=== PATIENT | male | born 1965 | race Caucasian/White ===

== ENCOUNTER 2018-06-03 03:13 | Observation (INO) ==
--- NOTE | 2018-06-03 03:24 | Emergency Department Note ---
Disposition Clinical Impression: Cellulitis of right hand Pulmonary edema Qualifiers: Chronicity: acute Qualified Code(s): J81.0 - Acute pulmonary edema Disposition: Admitted As Inpatient Condition: Fair Fall HPI - General Chief Complaint: ED Fall Stated Complaint: fall Source: patient, EMS, other ([facility] report) Mode of arrival: EMS Limitations: altered mental status (dementia) Nursing Notes Reviewed: Yes Vital Signs Reviewed: Yes - History of Present Illness HPI Narrative: Patient presents to the ED via EMS with report of unwitnessed fall at his [facility] and being found to have low oxygen saturations. Per [facility] report patient was found on the floor in his room after an apparent fall that was not witnessed. His oxygen saturations were reportedly in the 50s to 60s at that time and he was placed on oxygen. He was reported to have a change in mental status as well. Per EMS patient is alert and does follow commands. He does have a history of dementia and psychosis. EMS placed him on 4 L of oxygen with improvement saturations into the mid 90s. Apparently he normally is supposed to wear 2 L of oxygen at all times at the [facility] but is not always compliant. On arrival here patient is awake and alert. He will follow commands and answers some questions appropriately. He initially denied any pain or complaints but then did indicate he had some pain in his left lower leg and right hand and wrist during exam. Records shows that he does take xeralto and baby aspirin. - Related Data Home Medications Medication Instructions Recorded Confirmed ARIPiprazole [Abilify] 5 mg PO DAILY 05/17/18 06/03/18 Acetaminophen [Tylenol] 650 mg PO Q6HR 05/17/18 05/17/18 Aspirin [Lo-Dose Aspirin EC] 81 mg PO DAILY 05/17/18 06/03/18 Atorvastatin [Lipitor] 40 mg PO HS 05/17/18 06/03/18 Carvedilol [Coreg] 6.25 mg PO BIDWM 05/17/18 06/03/18 Famotidine [Pepcid] 40 mg PO DAILY 05/17/18 06/03/18 HYDROcodone/Acet 7.5/325 mg [[place] 1 tab PO Q4H PRN 05/17/18 06/03/18 7.5-325 mg] Insulin Glargine [Lantus] 35 unit SQ HS 05/17/18 06/03/18 Insulin LISPRO [Humalog] 0 unit SQ TIDWM 05/17/18 06/03/18 Ipratropium/Albuterol Neb [Duoneb] 3 ml IH Q6HR 05/17/18 06/03/18 LORazepam [Ativan] 1 mg PO TID 05/17/18 06/03/18 Levothyroxine [Synthroid] 50 mcg PO 0630 05/17/18 06/03/18 Lisinopril [Zestril] 5 mg PO DAILY 05/17/18 06/03/18 Melatonin 10 mg PO HS 05/17/18 06/03/18 OLANZapine [Zyprexa] 2.5 mg PO BID 05/17/18 06/03/18 Ondansetron ODT [Zofran ODT] 4 mg SL Q6HR PRN 05/17/18 06/03/18 Quetiapine Fumarate [Seroquel] 200 mg PO TID 05/17/18 06/03/18 Rivaroxaban [Xarelto] 20 mg PO DAILY 05/17/18 06/03/18 Sertraline [Zoloft] 75 mg PO DAILY 05/17/18 06/03/18 Tamsulosin HCl [Flomax] 0.4 mg PO DAILY 05/17/18 06/03/18 metFORMIN [Glucophage] 1,000 mg PO BIDWM 05/17/18 06/03/18 Cyanocobalamin (Vitamin B-12) 1,000 mcg PO DAILY 06/03/18 06/03/18 [Vitamin B-12] Divalproex (12 HR) [Depakote (12 500 mg PO BID 06/03/18 06/03/18 HR)] HydrOXYzine Pamoate [Vistaril] 25 mg PO BID 06/03/18 06/03/18 Multivit-Min/Iron Fum/Folic AC 1 each PO DAILY 06/03/18 06/03/18 [Dkafn-Ntwowtk-Biquykck Tablet] Allergies Allergy/AdvReac Type Severity Reaction Status Date / Time bupropion [From Wellbutrin] Allergy Hives Verified 06/03/18 03:42 Constitutional: Denies: fever, chills, weakness, weight change Eyes: Denies: eye pain, eye discharge, vision change ENT ED: Denies: ear pain, throat pain, dental pain, hearing loss, epistaxis, congestion, dysphagia Cardiovascular: Denies: chest pain, palpitations, dyspnea on exertion, edema, syncope Respiratory: Denies: cough, dyspnea, wheezes, hemoptysis, stridor Gastrointestinal: Denies: abdominal pain, nausea, vomiting, diarrhea, consti pation, hematemesis, melena, hematochezia Genitourinary: Denies: urgency, dysuria, frequency, hematuria Musculoskeletal: Reports: as per HPI, arthralgia (R hand/wrist, left lower leg). Denies: back pain, neck pain, myalgia Integumentary: Denies: rash, abrasion, lesions Neurological: Denies: headache, weakness, numbness, paresthesias, confusion, abnormal gait, vertigo Psychiatric: Denies: anxiety, depression, suicidal thoughts, homicidal thoughts, auditory hallucinations, visual hallucinations Endocrine: Denies: fatigue Hematological/Lymphatic: Denies: easy bleeding, easy bruising Allergic/Immunologic: Denies: facial swelling, urticaria Fall PMH - Past Medical History Medical history: Reports: diabetes, hypertension Psychiatric history: Reports: other (psychosis) - Social History Smoking Status: Current every day smoker Alcohol use: Reports: none Drug use: Reports: none Physical Exam - General Limitations: no limitations General appearance: in no apparent distress, obese - Head Head exam: atraumatic, normocephalic, normal inspection - Eye Eye exam: Present: normal appearance, PERRL, EOMI - ENT ENT exam: normal exam, normal oropharynx, mucous membranes dry - Neck Neck exam: Present: normal inspection, full ROM, trachea midline - Chest Chest inspection: Present: normal inspection, symmetric chest wall rise - Respiratory Respiratory exam: Present: normal lung sounds bilaterally - Cardiovascular Cardiovascular exam: Present: regular rate, normal rhythm, normal heart sounds - Abdominal Exam Abdominal exam: Present: soft, Non-Tender. Absent: tenderness, distention, guarding, rebound, rigidity - Expanded Upper Extremity Exam Shoulder exam: Present: normal inspection, full ROM Arm exam: Present: normal inspection, full ROM Elbow exam: Present: normal inspection, full ROM Forearm/Wrist exam: Present: tenderness, swelling (right wrist), erythema (and warmth on right). Absent: ecchymosis Hand exam: Present: tenderness, swelling, erythema (and warmth on right) Vascular exam: Normal: capillary refill, radial pulse - Expanded Lower Extremity Exam Hip/Pelvis exam: Present: normal inspection, full ROM Upper leg exam: Present: normal inspection, full ROM, other (proximal AKA on right) Knee exam: Present: normal inspection, full ROM Lower leg exam: Present: erythema (and warmth R lower leg and foot, weeping chronic ulcerations) Ankle exam: Present: erythema (and warmth on right) Foot/toe exam: Present: normal inspection, full ROM - Back Exam Back exam: Present: normal inspection, full ROM. Absent: tenderness - Neurological Exam Neurological exam: Present: alert - Psychiatric Psychiatric exam: Present: normal mood, agitated - Skin Skin exam: Present: warm, dry, intact, normal color Course Course Narrative: Patient presents to the ED after an unwitnessed fall at his [facility] with low oxygen saturations. On arrival here oxygen saturations are in the low 90s on 4 L via nasal cannula via his mouth as he is a mouth breather and will not tolerate wearing the nasal cannula intranasally. He is afebrile, nontoxic in appearance and hemodynamically stable other than some mild tachycardia. The right hand and wrist are swollen and red with concerns for cellulitis versus possible traumatic injury from the fall. He also has redness, swelling and warmth to the left lower leg with documentation of her chronic venous ulcer requiring daily dressing changes on his paperwork. This also appears to possibly have associated cellulitis. Will obtain imaging of the hands, wrist and had given the patient is on blood thinners along with the chest x-ray given the low oxygen saturations. Will obtain lab work for further testing of any infectious process. - Reevaluation(s) Reevaluation #1: Laboratory station a mild leukocytosis of 12.5. Lactic acid is normal. Head CT did not show any intracranial injury. X-rays of the right hand and wrist show soft tissue swelling. Chest x-ray however show some pulmonary edema which is consistent with patient's increased dyspnea and trouble tolerating lying flat for his imaging. Oxygen saturations remained in the 90s on 4 L. He has not usually on any diuretics according to records. We will give a dose of Lasix. He has also been given medication for pain and a dose of IV clindamycin for what appears to be some right hand cellulitis. Blood cultures have been drawn. He will require admission for continued diuresis and antibiotic therapy. I spoke to the hospitalist on-call, Dr. Leblanc, who has agreed to admit the patient. Time: 05:22 Vital Signs Temperature 97.4 F L 06/03/18 03:15 Pulse Rate 121 06/03/18 03:15 Respiratory Rate 17 06/03/18 03:15 Blood Pressure 139/63 06/03/18 03:15 O2 Sat by Pulse Oximetry 91 06/03/18 03:15 Temperature 97.4 F L 06/03/18 03:15 Pulse Rate 123 06/03/18 04:48 Respiratory Rate 22 06/03/18 04:48 Blood Pressure 130/71 06/03/18 04:48 O2 Sat by Pulse Oximetry 95 06/03/18 04:48 Oxygen Delivery Oxygen Delivery Nasal Cannula Fall - Differential Diagnosis Likely: traumatic injury - Medical Records Medical records reviewed: Yes I reviewed the patient's medical records. - Lab Data Lab results reviewed: Yes I reviewed the patient's lab results. Result diagrams: 06/03/18 03:55 06/03/18 03:55 Lab Results 06/03/18 06/03/18 06/03/18 Range/Units 03:55 03:55 03:55 WBC 12.5 H (4.3-11.1) K/mcL RBC 4.81 (4.19-5.50) M/mcL Hgb 13.1 (12.9-16.9) g/dL Hct 44.2 (37.5-50.1) % MCV 91.9 (83.0-100.0) fL MCH 27.2 L (28.0-33.3) pg MCHC 29.6 L (31.6-35.5) g/dL RDW 17.6 H (11.5-14.5) % Plt Count 243 (140-400) K/mcL MPV 8.9 L (9.4-12.4) fL Immature Gran % 4.4 H (0-4) % Seg Neutrophils % 68.9 % Lymphocytes % 11.6 % Monocytes % 12.8 % Eosinophils % 1.4 % Basophils % 0.9 % Neutrophils # 8.6 (1.6-8.9) K/mcL Lymphocytes # 1.5 (0.6-4.6) K/mcL Monocytes # 1.6 H (0.0-1.3) K/mcL Eosinophils # 0.2 (0.0-0.6) K/mcL Basophils # 0.1 (0.0-0.2) K/mcL Nucleated RBCs/100 WBC 1.1 H (0) /100 WBC PT 12.7 H (9.4-12.1) Seconds INR 1.1 Sodium 135 L (136-145) mEq/L Potassium 4.5 (3.5-5.1) mEq/L Chloride 92 L (98-107) mEq/L Carbon Dioxide 34 H (23-29) mEq/L BUN 19 (6-20) mg/dL Creatinine 0.48 L (0.70-1.30) mg/dL Est GFR ( Amer) > 60 (> 60) Est GFR (Non-Af Amer) > 60 (> 60) BUN/Creatinine Ratio 40 H (6-26) Glucose 231 H (70-105) mg/dL Calculated Osmolality 290 (280-300) Lactic Acid (0.5-2.2) mmol/L Calcium 9.4 (8.6-10.3) mg/dL 06/03/18 Range/Units 03:55 WBC (4.3-11.1) K/mcL RBC (4.19-5.50) M/mcL Hgb (12.9-16.9) g/dL Hct (37.5-50.1) % MCV (83.0-100.0) fL MCH (28.0-33.3) pg MCHC (31.6-35.5) g/dL RDW (11.5-14.5) % Plt Count (140-400) K/mcL MPV (9.4-12.4) fL Immature Gran % (0-4) % Seg Neutrophils % % Lymphocytes % % Monocytes % % Eosinophils % % Basophils % % Neutrophils # (1.6-8.9) K/mcL Lymphocytes # (0.6-4.6) K/mcL Monocytes # (0.0-1.3) K/mcL Eosinophils # (0.0-0.6) K/mcL Basophils # (0.0-0.2) K/mcL Nucleated RBCs/100 WBC (0) /100 WBC PT (9.4-12.1) Seconds INR Sodium (136-145) mEq/L Potassium (3.5-5.1) mEq/L Chloride (98-107) mEq/L Carbon Dioxide (23-29) mEq/L BUN (6-20) mg/dL Creatinine (0.70-1.30) mg/dL Est GFR ( Amer) (> 60) Est GFR (Non-Af Amer) (> 60) BUN/Creatinine Ratio (6-26) Glucose (70-105) mg/dL Calculated Osmolality (280-300) Lactic Acid 2.2 (0.5-2.2) mmol/L Calcium (8.6-10.3) mg/dL - Radiology Data Radiology results reviewed: Yes I reviewed the patient's radiology results. ITS Impressions Chest X-Ray 06/03/18 03:37 IMPRESSION: Cardiomegaly and pulmonary edema. D/ / Garett Mae MD / Garett Mae MD Interpreting Provider: Garett Mae MD Hand X-Ray 06/03/18 03:37 IMPRESSION: Limited study with no definite fracture. Soft tissue swelling. D/ / Garett Mae MD / Garett Mae MD Interpreting Provider: Garett Mae MD Head CT 06/03/18 03:37 IMPRESSION: Severely limited study demonstrating left frontoparietal encephalomalacia. Consider repeat evaluation once the patient is able to remain still. D/ / Garett Mae MD / Garett Mae MD Interpreting Provider: Garett Mae MD Wrist X-Ray 06/03/18 03:37
[2018-06-03] MEDS ORDERED: *HR* LORazepam 2 MG/ML VIAL IM ONE (03:59)
[2018-06-03 04:06] LABS: Basophils # 0.1 K/mcL (0.0-0.2); Basophils % 0.9 %; Eosinophils # 0.2 K/mcL (0.0-0.6); Eosinophils % 1.4 %; Hematocrit 44.2 % (37.5-50.1); Hemoglobin 13.1 g/dL (12.9-16.9); Immature Granulocytes % 4.4 % (0-4); Lymphocytes % 11.6 %; Mean Corpuscular HGB Conc 29.6 g/dL (31.6-35.5); Mean Corpuscular Hemoglobin 27.2 pg (28.0-33.3); Mean Corpuscular Volume 91.9 fL (83.0-100.0); Mean Platelet Volume 8.9 fL (9.4-12.4); Monocytes # 1.6 K/mcL (0.0-1.3); Monocytes % 12.8 %; Neutrophils # 8.6 K/mcL (1.6-8.9); Nucleated Red Blood Cells 1.1 /100 WBC (0); Platelet Count 243 K/mcL (140-400); Red Blood Count 4.81 M/mcL (4.19-5.50); Red Cell Distribution Width 17.6 % (11.5-14.5); Segmented Neutrophils % 68.9 %
[2018-06-03 04:10] LABS: Lymphocytes # 1.5 K/mcL (0.6-4.6)
[2018-06-03 04:15] LABS: INR 1.1; Prothrombin Time 12.7 Seconds (9.4-12.1)
[2018-06-03 04:28] LABS: BUN/Creatinine Ratio 40 (6-26); Blood Urea Nitrogen 19 mg/dL (6-20); Calcium 9.4 mg/dL (8.6-10.3); Carbon Dioxide 34 mEq/L (23-29); Chloride 92 mEq/L (98-107); Glucose 231 mg/dL (70-105); Osmolality,Calculated 290 (280-300); Potassium 4.5 mEq/L (3.5-5.1); Sodium 135 mEq/L (136-145); eGFR For Non-African Americans > 60 (> 60)
[2018-06-03] MEDS ORDERED: *HR* HYDROcodone/Acet 5/325 mg TABLET PO ONE (04:58)
[2018-06-03] MEDS ORDERED: Clindamycin 600 MG/50 ML 600 MG/50 ML IV.SOLN IVPB STA (04:58)
[2018-06-03] MEDS ORDERED: Furosemide 40 MG/4 ML VIAL IVP ONE (05:16)
[2018-06-03] MEDS ORDERED: Naloxone 0.4 MG/ML INJ IVP PRN ×2 (05:26→07:04)
[2018-06-03] MEDS ORDERED: *HR* Dextrose 50 % in Water (Syg) 50 ML SYRINGE IVP PRN ×2 (05:31→07:04)
[2018-06-03] MEDS ORDERED: D5% in Water 1,000 ML IVC PRN ×2 (05:31→07:04)
[2018-06-03] MEDS ORDERED: Dextrose Gel 15 GM/37.5 ML TUBE PO PRN ×4 (05:31→07:04)
[2018-06-03] MEDS ORDERED: Ipratropium/Albuterol Neb 3 ML IH ONE (05:33)
[2018-06-03] MEDS ORDERED: Ondansetron ODT 4 MG TAB.RAPDIS SL PRN (07:04)
[2018-06-03] MEDS ORDERED: Ipratropium/Albuterol Neb 3 ML IH SCH ×2 (07:04→10:00)
[2018-06-03] MEDS ORDERED: Insulin LISPRO 300 UNITS/3 ML VIAL SQ SCH ×3 (07:30→21:00)
[2018-06-03] MEDS ORDERED: Nicotine 14 MG PATCH.TD24 TD SCH (09:00)
[2018-06-03] MEDS: Divalproex (12 HR) 250 MG TABLET PO SCH ×2 (10:20→22:08)
[2018-06-03] MEDS: *HR* LORazepam 1 MG TABLET PO SCH ×3 (10:20→22:07)
[2018-06-03] MEDS: hydrOXYzine pamoate 25 MG CAPSULE PO SCH ×2 (10:21→22:09)
[2018-06-03] MEDS: *HR* HYDROcodone/Acet 7.5/325 mg TABLET PO PRN ×2 (10:21→16:10)
[2018-06-03] MEDS: Acetaminophen 325 MG TABLET PO SCH ×4 (10:21→22:07)
[2018-06-03] MEDS: *HR* Metformin 500 MG TABLET PO SCH ×2 (10:22→16:11)
[2018-06-03] MEDS: Multivit/Ca/Min/Fe/FA 1 TAB TABLET PO SCH (10:22)
[2018-06-03] MEDS: *HR* Rivaroxaban 10 MG TABLET PO SCH (10:22)
[2018-06-03] MEDS: Famotidine 20 MG TABLET PO SCH (10:23)
[2018-06-03] MEDS: ARIPiprazole 5 MG TABLET PO SCH (10:23)
[2018-06-03] MEDS: Cyanocobalamin (B-12) 1,000 MCG TABLET PO SCH (10:23)
[2018-06-03] MEDS: Aspirin Enteric Coated 81 MG Tablet PO SCH (10:23)
[2018-06-03] MEDS: Nicotine 14 MG PATCH.TD24 TD SCH (10:32)
[2018-06-03] MEDS: OLANZapine 5 MG TAB.RAPDIS PO SCH ×2 (10:32→22:08)
[2018-06-03] MEDS: Levothyroxine 25 MCG TABLET PO SCH (10:32)
[2018-06-03] MEDS: Insulin LISPRO 300 UNITS/3 ML VIAL SQ SCH ×3 (10:47→17:15)
--- NOTE | 2018-06-03 12:15 | Internal Med History&Physical ---
Date of Encounter: 06/03/18 Time of Encounter: 11:45 Assessment and Plan (1) Altered mental status Current visit: Yes Status: Acute Etiology not certain at this time. Head CT in emergency room unremarkable. Order stat ABG and do further workup as needed. Qualifiers: Altered mental status type: somnolence Qualified Code(s): R40.0 - Somnolence (2) Hypoxemia Current visit: Yes Status: Acute Continue supplemental oxygen as needed. Chest x-ray showed pulmonary edema. BN peptide was normal at 16. There was no left shift seen on slight elevation of WBC at 12.5. (3) DM type 2 (diabetes mellitus, type 2) Current visit: Yes Status: Acute Hemoglobin A1c was 9.3% on 05/23/2018. Continue Lantus, SSI Humalog, and Glucophage. Qualifiers: Diabetes mellitus salvage determiner insulin use: with salvage determiner use Diabetes mckenna itus complication status: with circulatory complication Diabetes mellitus complication detail: with peripheral angiopathy without gangrene Qualified Code(s): E11.51 - Type 2 diabetes mellitus with diabetic peripheral angiopathy without gangrene; Z79.4 - care home (current) use of insulin (4) Hyperlipidemia Current visit: Yes Status: Acute Lipid profile 05/23/2018 showed triglycerides 566, cholesterol 122, HDL 35, and total/HDL ratio 3.5. Qualifiers: Hyperlipidemia type: pure hyperglyceridemia Qualified Code(s): E78.1 - Pure hyperglyceridemia (5) Pulmonary embolism Current visit: Yes Status: Chronic Date unknown. Continue Xarelto. Qualifiers: Pulmonary embolism type: other Chronicity: chronic Acute cor pulmonale presence: without acute cor pulmonale Qualified Code(s): I27.82 - Chronic pulmonary embolism Internal Medicine - H&P: HPI Chief complaint: Fall, hypoxemia Admitted From: Emergency Dept Plans for Post Hospital Care: Home History of present illness: Mr. Johnson is a 53 year old male who was sent from a local SNF to emergency room after he had an unwitnessed fall. Oxygen saturations were reportedly in the 50-70% range. He was reported to have mental status changes. He was evalua fadumo in emergency room and was felt to have possible cellulitis of the right hand. Head CT was unremarkable. No fractures were seen on x-rays. He was admitted to [facility] floor for ongoing care needs. He cannot give any significant history at this time because of lethargy and incoherent speech. Past Med Surg Social Fam HX - Past Medical History Medical history: diabetes, hypertension Additional medical history: BPH, peripheral vascular disease, Psychiatric history: other (psychosis) - Past Surgical History Additional surgical history: RIGHT KNEE AKA - Social History Smoking Status: Current every day smoker Smokeless Tobacco Status: No Alcohol use: none Drug use: none Internal Medicine - H&P: Meds ARIPiprazole [Abilify] 5 mg PO DAILY 05/17/18 [History] Acetaminophen [Tylenol] 650 mg PO Q6HR 05/17/18 [History] Aspirin [Lo-Dose Aspirin EC] 81 mg PO DAILY 05/17/18 [History] Atorvastatin [Lipitor] 40 mg PO HS 05/17/18 [History] Carvedilol [Coreg] 6.25 mg PO BIDWM 05/17/18 [History] Famotidine [Pepcid] 40 mg PO DAILY 05/17/18 [History] HYDROcodone/Acet 7.5/325 mg [[place] 7.5-325 mg] 1 tab PO Q4H PRN 05/17/18 [History] Insulin Glargine [Lantus] 35 unit SQ HS 05/17/18 [History] Insulin LISPRO [Humalog] 0 unit SQ TIDWM 05/17/18 [History] Ipratropium/Albuterol Neb [Duoneb] 3 ml IH Q6HR 05/17/18 [History] LORazepam [Ativan] 1 mg PO TID 05/17/18 [History] Levothyroxine [Synthroid] 50 mcg PO 0630 05/17/18 [History] Lisinopril [Zestril] 5 mg PO DAILY 05/17/18 [History] Melatonin 10 mg PO HS 05/17/18 [History] OLANZapine [Zyprexa] 2.5 mg PO BID 05/17/18 [History] Ondansetron ODT [Zofran ODT] 4 mg SL Q6HR PRN 05/17/18 [History] Quetiapine Fumarate [Seroquel] 200 mg PO TID 05/17/18 [History] Rivaroxaban [Xarelto] 20 mg PO DAILY 05/17/18 [History] Sertraline [Zoloft] 75 mg PO DAILY 05/17/18 [History] Tamsulosin HCl [Flomax] 0.4 mg PO DAILY 05/17/18 [History] metFORMIN [Glucophage] 1,000 mg PO BIDWM 05/17/18 [History] Cyanocobalamin (Vitamin B-12) [Vitamin B-12] 1,000 mcg PO DAILY 06/03/18 [History] Divalproex (12 HR) [Depakote (12 HR)] 500 mg PO BID 06/03/18 [History] HydrOXYzine Pamoate [Vistaril] 25 mg PO BID 06/03/18 [History] Multivit-Min/Iron Fum/Folic AC [Gizqo-Ztwtjrz-Qatthyqm Tablet] 1 each PO DAILY 06/03/18 [History] Allergy/AdvReac Type Severity Reaction Status Date / Time bupropion [From Wellbutrin] Allergy Hives Verified 06/03/18 03:42 All Systems PM: A 10-system review of systems was performed and is negative for pertinent findings except as documented above in the HPI. Review of systems: Unobtainable from the patient. I spoke with his primary care nurse at the [facility] who reports he has diagnoses of dementia, DM 2, CHF, ASPVD, pulmonary embolism, and COPD. He has MRDD with psychosis. His weight has increased from 182 pounds in January 2018 to present weight of approximately 260 pounds. - Constitutional Vitals: Temp Pulse Resp BP Pulse Ox 98.2 F 113 91 148/70 20 06/03/18 11:15 06/03/18 11:15 06/03/18 11:15 06/03/18 11:15 06/03/18 11:15 Exam: Gen.: He is a well-developed obese white male lying in bed who appears in no significant distress HEENT: Head is atraumatic and normocephalic. Eyes: EOMI. There is no scleral icterus. Mouth: Mucosa slightly dry Neck: He has a large jowl. There is no thyromegaly or adenopathy noted. Heart: Regular without murmurs gallops or ectopics Lungs: He has diminished breath sounds diffusely. No wheezes or crackles are heard. Abdomen: His abdomen is tympanitic to percussion. Bowel sounds are diminished. There is a well-healed scar in the left upper epigastric area from presumed previous G tube. Extremities: He has well-healed AKA on the right leg. The left lower leg shows chronic venous stasis pigmentation changes with a few shallow ulcerative areas that are draining onto the gauze wrap. Dorsalis pedis and posttibial pulses are nonpalpable. His foot is warm to touch. He has obesity with trace pitting e orion of his dorsum hands bilaterally. Neurologic: Mental status: He attempts to answer some questions but his speech is garbled incoherent. Cranial nerves: Facial movements are symmetric. Forehead wrinkles bilaterally. Tongue protrudes midline. EOMI. Motor: He cannot pronate his arms well. There is no drift. Cerebellar: Finger to nose is intact bilaterally. Skin: He has some bruising of the left anterior shoulder and upper arm. He has erythema with some drainage of his left lower leg as per above. Internal Med - H&P Results - Labs CBC & Chem 7: 06/03/18 03:55 06/03/18 03:55 Labs: Short CBC 06/03/18 Range/Units 03:55 WBC 12.5 H (4.3-11.1) K/mcL Hgb 13.1 (12.9-16.9) g/dL Hct 44.2 (37.5-50.1) % Plt Count 243 (140-400) K/mcL Neutrophils # 8.6 (1.6-8.9) K/mcL BMP 06/03/18 03:55 Sodium 135 L Potassium 4.5 Chloride 92 L Carbon Dioxide 34 H BUN 19 Creatinine 0.48 L Glucose 231 H Calcium 9.4 - Impressions ITS Impressions Chest X-Ray 06/03/18 03:37 IMPRESSION: Cardiomegaly and pulmonary edema. D/ / Garett Mae MD / Garett Mae MD Interpreting Provider: Garett Mae MD Hand X-Ray 06/03/18 03:37 IMPRESSION: Limited study with no definite fracture. Soft tissue swelling. D/ / Garett Mae MD / Garett Mae MD Interpreting Provider: Garett Mae MD Head CT 06/03/18 03:37 IMPRESSION: Severely limited study demonstrating left frontoparietal encephalomalacia. Consider repeat evaluation once the patient is able to remain still. D/ / Garett Mae MD / Garett Mae MD Interpreting Provider: Garett Mae MD Wrist X-Ray 06/03/18 03:37 IMPRESSION: Limited study with no definite fracture. Soft tissue swelling. D/ / Garett Mae MD / Garett Mae MD Interpreting Provider: Garett Mae MD - VTE Reasons for not Prescribing Prophylaxis: Not indicated-Anticoagulated or INR therapeutic
[2018-06-03] MEDS ORDERED: Albuterol 2.5 MG/3 ML NEBULIZER IH PRN (14:34)
[2018-06-03] MEDS ORDERED: Isovue-370 500 ML INFUS..BTL IV ONE (14:48)
[2018-06-03] MEDS ORDERED: Insulin DETEMIR 100 UNIT/ML X5UNITS SQ SCH (21:00)
[2018-06-03] MEDS ORDERED: Melatonin 3 MG TABLET PO SCH (21:00)
[2018-06-04 05:39] LABS: Hematocrit 42.6 % (37.5-50.1); Hemoglobin 12.7 g/dL (12.9-16.9); Mean Corpuscular HGB Conc 29.8 g/dL (31.6-35.5); Mean Corpuscular Hemoglobin 27.3 pg (28.0-33.3); Mean Corpuscular Volume 91.6 fL (83.0-100.0); Mean Platelet Volume 9.2 fL (9.4-12.4); Platelet Count 270 K/mcL (140-400); Red Blood Count 4.65 M/mcL (4.19-5.50); Red Cell Distribution Width 17.3 % (11.5-14.5); Segmented Neutrophils % 78.2 %
[2018-06-04 05:40] LABS: Basophils # 0.1 K/mcL (0.0-0.2); Basophils % 0.7 %; Eosinophils # 0.1 K/mcL (0.0-0.6); Eosinophils % 0.4 %; Immature Granulocytes % 2.3 % (0-4); Lymphocytes # 0.9 K/mcL (0.6-4.6); Lymphocytes % 7.6 %; Monocytes # 1.3 K/mcL (0.0-1.3); Monocytes % 10.8 %; Neutrophils # 9.5 K/mcL (1.6-8.9); Nucleated Red Blood Cells 0.4 /100 WBC (0)
[2018-06-04 06:03] LABS: BUN/Creatinine Ratio 42 (6-26); Blood Urea Nitrogen 19 mg/dL (6-20); Calcium 9.3 mg/dL (8.6-10.3); Carbon Dioxide 37 mEq/L (23-29); Chloride 93 mEq/L (98-107); Glucose 211 mg/dL (70-105); Osmolality,Calculated 297 (280-300); Potassium 4.4 mEq/L (3.5-5.1); Sodium 139 mEq/L (136-145); eGFR For Non-African Americans > 60 (> 60)
[2018-06-04] MEDS: Acetaminophen 325 MG TABLET PO SCH (06:14)
[2018-06-04] MEDS: *HR* HYDROcodone/Acet 7.5/325 mg TABLET PO PRN (06:14)
[2018-06-04] MEDS: Levothyroxine 25 MCG TABLET PO SCH (06:14)
[2018-06-04 07:09] VITALS: BP 135/71
[2018-06-04] MEDS: Multivit/Ca/Min/Fe/FA 1 TAB TABLET PO SCH (07:54)
[2018-06-04] MEDS: Cyanocobalamin (B-12) 1,000 MCG TABLET PO SCH (07:54)
[2018-06-04] MEDS: Aspirin Enteric Coated 81 MG Tablet PO SCH (07:54)
[2018-06-04] MEDS: OLANZapine 5 MG TAB.RAPDIS PO SCH (07:55)
[2018-06-04] MEDS: *HR* LORazepam 1 MG TABLET PO SCH (07:55)
[2018-06-04] MEDS: ARIPiprazole 5 MG TABLET PO SCH (07:55)
[2018-06-04] MEDS: Famotidine 20 MG TABLET PO SCH (07:56)
[2018-06-04] MEDS: Divalproex (12 HR) 250 MG TABLET PO SCH (07:56)
[2018-06-04] MEDS: *HR* Rivaroxaban 10 MG TABLET PO SCH (07:56)
[2018-06-04] MEDS: *HR* Metformin 500 MG TABLET PO SCH (07:56)
[2018-06-04] MEDS: Insulin LISPRO 300 UNITS/3 ML VIAL SQ SCH (08:13)
--- NOTE | 2018-06-04 09:32 | Discharge Summary ---
Orders not resulted at time of discharge: Pending orders 06/03/18 03:43 Culture,Blood [] Stat Date of Encounter: 06/04/18 Time of Encounter: 09:25 - Discharge Diagnosis (1) Altered mental status Priority: Primary Status: Acute Qualifiers: Altered mental status type: somnolence Qualified Code(s): R40.0 - Somnolence (2) Hypoxemia Priority: Secondary Status: Acute (3) DM type 2 (diabetes mellitus, type 2) Priority: Secondary Status: Acute Qualifiers: Diabetes mellitus exterminator helper termite insulin use: with exterminator helper termite use Diabetes mellitus complication status: with circulatory complication Diabetes mellitus complication detail: with peripheral angiopathy without gangrene Qualified Code(s): E11.51 - Type 2 diabetes mellitus with diabetic peripheral angiopathy without gangrene; Z79.4 - halfway (current) use of insulin (4) Hyperlipidemia Priority: Secondary Status: Acute Qualifiers: Hyperlipidemia type: pure hyperglyceridemia Qualified Code(s): E78.1 - Pure hyperglyceridemia (5) Pulmonary embolism Priority: Secondary Status: Chronic Qualifiers: Pulmonary embolism type: other Chronicity: chronic Acute cor pulmonale presence: without acute cor pulmonale Qualified Code(s): I27.82 - Chronic pulmonary embolism Hospital course: Mr. Johnson is a 53 year old male who was sent from a local SNF to emergency room after he had an unwitnessed fall. Oxygen saturations were reportedly in the 50-70% range. He was reported to have mental status changes. He was evaluated in emergency room and was felt to have possible cellulitis of the right hand. Head CT was unremarkable. No fractures were seen on x-rays. He was admitted to [facility] for ongoing care needs. Initial orders were written by the emergency room physician. I saw him on June 03 and performed the history and physical. Head CT in emergency room was unremarkable. An ABG was ordered but patient refused this. D-dimer returned elevated at 717. Chest CTA was ordered to further evaluate. There was significant limitation by motion artifact however no central pulmonary embolism in the main or branch pulmonary arteries was seen. No obvious infiltrate was reported. Follow-up labs on June 04 showed WBC slightly decreased to 12.2 with slight left shift seen. Patient appeared in no respiratory distress and I felt he was stable for discharge back to [place] [facility] [place]. He will not be given antibiotics since he remained afebrile and no source of infection was identified. - Time Spent with Patient Total time spent providing and/or coordinating discharge services: - Discharge Medications Home Medications: ARIPiprazole [Abilify] 5 mg PO DAILY 05/17/18 [History] Acetaminophen [Tylenol] 650 mg PO Q6HR 05/17/18 [History] Aspirin [Lo-Dose Aspirin EC] 81 mg PO DAILY 05/17/18 [History] Atorvastatin [Lipitor] 40 mg PO HS 05/17/18 [History] Carvedilol [Coreg] 6.25 mg PO BIDWM 05/17/18 [History] Famotidine [Pepcid] 40 mg PO DAILY 05/17/18 [History] HYDROcodone/Acet 7.5/325 mg [[place] 7.5-325 mg] 1 tab PO Q4H PRN 05/17/18 [History] Insulin Glargine [Lantus] 35 unit SQ HS 05/17/18 [History] Insulin LISPRO [Humalog] 0 unit SQ TIDWM 05/17/18 [History] Ipratropium/Albuterol Neb [Duoneb] 3 ml IH Q6HR 05/17/18 [History] LORazepam [Ativan] 1 mg PO TID 05/17/18 [History] Levothyroxine [Synthroid] 50 mcg PO 0630 05/17/18 [History] Lisinopril [Zestril] 5 mg PO DAILY 05/17/18 [History] Melatonin 10 mg PO HS 05/17/18 [History] OLANZapine [Zyprexa] 2.5 mg PO BID 05/17/18 [History] Ondansetron ODT [Zofran ODT] 4 mg SL Q6HR PRN 05/17/18 [History] Quetiapine Fumarate [Seroquel] 200 mg PO TID 05/17/18 [History] Rivaroxaban [Xarelto] 20 mg PO DAILY 05/17/18 [History] Sertraline [Zoloft] 75 mg PO DAILY 05/17/18 [History] Tamsulosin HCl [Flomax] 0.4 mg PO DAILY 05/17/18 [History] metFORMIN [Glucophage] 1,000 mg PO BIDWM 05/17/18 [History] Cyanocobalamin (Vitamin B-12) [Vitamin B-12] 1,000 mcg PO DAILY 06/03/18 [History] Divalproex (12 HR) [Depakote (12 HR)] 500 mg PO BID 06/03/18 [History] HydrOXYzine Pamoate [Vistaril] 25 mg PO BID 06/03/18 [History] Multivit-Min/Iron Fum/Folic AC [Iizba-Lwvfjel-Fuekhjmh Tablet] 1 each PO DAILY 06/03/18 [History] Allergies/Adverse Reactions: Allergy/AdvReac Type Severity Reaction Status Date / Time bupropion [From Wellbutrin] Allergy Hives Verified 06/03/18 03:42 Date of admission: 06/03/18 05:37 Primary care physician: Rafa Mills MD - Constitutional Vitals: Temp Pulse Resp BP Pulse Ox 98.3 F 110 16 135/71 94 06/04/18 06:57 06/04/18 06:57 06/04/18 06:57 06/04/18 06:57 06/03/18 16:10 - Patient Status Disposition: Transfer SNF Condition: Fair - Discharge Instructions Follow Up With: Rafa Mills MD [Primary Care Provider] - - Diet and Activity Activity: resume usual activities as tolerated Diet: advance to your usual diet - VTE Reasons for not Prescribing Prophylaxis: Not indicated-Anticoagulated or INR therapeutic
--- NOTE | 2018-06-04 09:39 | Physician Discharge Referral ---
ExtendedCare Referral Info Transfer To: [facility] Provider in Charge: Benji Provider in Charge after Transfer: PCP (Rafa Mills M.D.) - Diagnosis (1) Altered mental status Priority: Primary Status: Acute (2) Hypoxemia Priority: Secondary Status: Acute (3) DM type 2 (diabetes mellitus, type 2) Priority: Secondary Status: Acute (4) Hyperlipidemia Priority: Secondary Status: Acute (5) Pulmonary embolism Priority: Secondary Status: Chronic - Transfer Medications Home Medications: ARIPiprazole [Abilify] 5 mg PO DAILY 05/17/18 [History] Acetaminophen [Tylenol] 650 mg PO Q6HR 05/17/18 [History] Aspirin [Lo-Dose Aspirin EC] 81 mg PO DAILY 05/17/18 [History] Atorvastatin [Lipitor] 40 mg PO HS 05/17/18 [History] Carvedilol [Coreg] 6.25 mg PO BIDWM 05/17/18 [History] Famotidine [Pepcid] 40 mg PO DAILY 05/17/18 [History] HYDROcodone/Acet 7.5/325 mg [[place] 7.5-325 mg] 1 tab PO Q4H PRN 05/17/18 [History] Insulin Glargine [Lantus] 35 unit SQ HS 05/17/18 [History] Insulin LISPRO [Humalog] 0 unit SQ TIDWM 05/17/18 [History] Ipratropium/Albuterol Neb [Duoneb] 3 ml IH Q6HR 05/17/18 [History] LORazepam [Ativan] 1 mg PO TID 05/17/18 [History] Levothyroxine [Synthroid] 50 mcg PO 0630 05/17/18 [History] Lisinopril [Zestril] 5 mg PO DAILY 05/17/18 [History] Melatonin 10 mg PO HS 05/17/18 [History] OLANZapine [Zyprexa] 2.5 mg PO BID 05/17/18 [History] Ondansetron ODT [Zofran ODT] 4 mg SL Q6HR PRN 05/17/18 [History] Quetiapine Fumarate [Seroquel] 200 mg PO TID 05/17/18 [History] Rivaroxaban [Xarelto] 20 mg PO DAILY 05/17/18 [History] Sertraline [Zoloft] 75 mg PO DAILY 05/17/18 [History] Tamsulosin HCl [Flomax] 0.4 mg PO DAILY 05/17/18 [History] metFORMIN [Glucophage] 1,000 mg PO BIDWM 05/17/18 [History] Cyanocobalamin (Vitamin B-12) [Vitamin B-12] 1,000 mcg PO DAILY 06/03/18 [History] Divalproex (12 HR) [Depakote (12 HR)] 500 mg PO BID 06/03/18 [History] HydrOXYzine Pamoate [Vistaril] 25 mg PO BID 06/03/18 [History] Multivit-Min/Iron Fum/Folic AC [Rtahi-Crnmrhk-Eltqomnt Tablet] 1 each PO DAILY 06/03/18 [History] Allergies/Adverse Reactions: 3 Allergy/AdvReac Type Severity Reaction Status Date / Time bupropion [From Wellbutrin] Allergy Hives Verified 06/03/18 03:42 - Respiratory Orders Oxygen / L per min (2-5 L per nasal cannula as necessary to keep sat greater than 90%.) Smoking Cessation: Smoking cessation has been advised. For more information, call the [place] Tobacco Quit Line at 4-353-GFCM-NOW. - Diet Orders No Concentrated Sweets CERTIFICATION: I certify that the transfer of the above named patient to an Extended Care Facility is necessary for the continuing treatment of the diagnosis listed. The above information is true and accurate reflection of patient's current condition. Confidential - Redisclosure prohibited without a patient's written consent.
[2018-06-04] MEDS: Nicotine 14 MG PATCH.TD24 TD SCH (10:04)
--- NOTE | 2018-06-07 22:02 | Electrocardiograph Report ---
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
== END 2018-06-04 11:20 ==
LOC: INPPIK 03:13 → EMEROOPIK 03:13 → INPPIK 06:15
PROVIDERS: ADMIT Internal Medicine; ATTEND Internal Medicine